=== PATIENT | female | born 1960 | race Caucasian/White ===

== ENCOUNTER 2017-08-03 15:35 | Emergency (ER) | payer OTHER ==
--- NOTE | 2017-08-03 17:39 | EDM.PDOC ---
ED HPI GENERAL MEDICAL PROBLEM - General Chief Complaint: Respiratory Problem Stated Complaint: CONJESTION Time Seen by Provider: 08/03/17 17:00 Source of Information: Reports: Patient History Limitations: Reports: No Limitations - History of Present Illness INITIAL COMMENTS - FREE TEXT/NARRATIVE: pt has arrived jhonatan she has had a marked cough for th past 1.5 weeks. Onset: Gradual, Other ( for 1.5 weeks. ) Duration: Day(s): Location: Reports: Chest Associated Symptoms: Reports: Chest Pain, Cough, Shortness of Breath, Other ( episodes of coughing until she vomits. ) - Related Data Allergies Allergy/AdvReac Type Severity Reaction Status Date / Time No Known Allergies Allergy Verified 08/03/17 15:53 Home Meds: Home Meds NK [No Known Home Meds] 08/03/17 [History] Past Medical History - Past Health History Medical/Surgical History: Denies Medical/Surgical History Cardiovascular History: Reports: High Cholesterol Musculoskeletal History: Reports: Fracture Other Musculoskeletal History: plate in right arm Oncologic (Cancer) History: Reports: Squamous Cell Carcinoma Dermatologic History: Reports: Other (See Below) - Infectious Disease History Infectious Disease History: Reports: Chicken Pox - Past Surgical History Female Surgical History: Reports: Hysterectomy Dermatological Surgical History: Reports: Skin Biopsy, Other (See Below) Social & Family History - Tobacco Use Smoking Status *Q: Never Smoker Second Hand Smoke Exposure: Yes - Caffeine Use Caffeine Use: Reports: Coffee - Recreational Drug Use Recreational Drug Use: No ED ROS GENERAL - Review of Systems Review Of Systems: See Below Constitutional: Reports: Chills, Weakness HEENT: Reports: No Symptoms Respiratory: Reports: Shortness of Breath, Cough Cardiovascular: Reports: No Symptoms Endocrine: Reports: No Symptoms GI/Abdominal: Reports: No Symptoms : Reports: No Symptoms Musculoskeletal: Reports: Hand Pain Skin: Reports: No Symptoms ED EXAM, GENERAL - Physical Exam Exam: See Below Free Text/Narrative:: pt arrived with a history of 1.5 weeks of cough and some shortness of breath. Exam Limited By: No Limitations General Appearance: Alert, Anxious, Mild Distress Ears: Normal TMs Nose: Normal Inspection Throat/Mouth: Normal Inspection Head: Atraumatic Neck: Normal Inspection Respiratory/Chest: Other (Pt did have some rales on the left side. ) Cardiovascular: Regular Rate, Rhythm GI/Abdominal: Soft, Non-Tender (Female) Exam: Deferred Rectal (Female) Exam: Deferred Back Exam: Normal Inspection Extremities: Normal Inspection Course - Vital Signs Last Recorded V/S: Last Vital Signs Temp 36.2 C 08/03/17 16:06 Pulse 65 08/03/17 16:06 Resp 14 08/03/17 16:06 BP 134/94 H 08/03/17 16:06 Pulse Ox 98 08/03/17 16:06 - Orders/Labs/Meds Orders: Active Orders 24 hr Category Date Time Status RT Aerosol Therapy [RC] ASDIRECTED Care 08/03/17 18:10 Active Chest 2V [CR] Stat Exams 08/03/17 17:36 Taken MONONUCLEOSIS SCREEN [CHEM] Stat Lab 08/03/17 18:10 Ordered Labs: Laboratory Tests 08/03/17 Range/Units 17:45 WBC 6.8 (4.5-11.0) K/uL RBC 4.51 (3.30-5.50) M/uL Hgb 13.8 (12.0-15.0) g/dL Hct 41.1 (36.0-48.0) % MCV 91 (80-98) fL MCH 31 (27-31) pg MCHC 34 (32-36) % Plt Count 288 (150-400) K/uL Neut % (Auto) 59 (36-66) % Lymph % (Auto) 30 (24-44) % Izard % (Auto) 8 H (2-6) % Eos % (Auto) 2 (2-4) % Baso % (Auto) 1 (0-1) % Meds: Medications Discontinued Medications Generic Name Dose Route Start Last Admin Trade Name David PRN Reason Stop Dose Admin Albuterol 2.5 mg 08/03/17 18:10 Proventil Neb Soln NEB 08/03/17 18:11 ONETIME ONE - Re-Assessments/Exams Free Text/Narrative Re-Assessment/Exam: 08/03/17 18:18 Pt was given a neb--albuterol. She had a chest xray which did not reveal a infiltrate. Her wbc was not elevated. She did have some atypical lymphs. Departure - Departure Time of Disposition: 18:19 Disposition: Home, Self-Care 01 Condition: Fair Clinical Impression: Bronchitis - Discharge Information Referrals: Shade Das MD [Primary Care Provider] - Forms: ED Department Discharge Care Plan Goals: Push fluids, albuterol inhaler 2 puffs tid, robitussin ac 2 tsp q6h prn for cough, zithromax - My Orders Last 24 Hours: My Active Orders 08/03/17 17:36 Chest 2V [CR] Stat 08/03/17 18:10 RT Aerosol Therapy [RC] ASDIRECTED MONONUCLEOSIS SCREEN [CHEM] Stat - Assessment/Plan Last 24 Hours: My Active Orders 08/03/17 17:36 Chest 2V [CR] Stat 08/03/17 18:10 RT Aerosol Therapy [RC] ASDIRECTED MONONUCLEOSIS SCREEN [CHEM] Stat
[2017-08-03] MEDS ORDERED: Albuterol 0.083% 2.5 MG/3 ML Neb Soln NEB ONE (18:10)
--- NOTE | 2017-08-05 09:37 | CR ---
Chest 2V HISTORY: Shortness of breath and cough COMPARISON: None FINDINGS: Cardiac size and pulmonary vessels normal. There are no infiltrates or effusions. No pneumo thorax. The osseous structures appear normal. IMPRESSION: No acute pulmonary disease.
== END 2017-08-03 18:34 | disposition home or self-care (01) ==
LOC: JP.ED 15:35
DX: J40 Bronchitis, not specified as acute or chronic (principal)
CPT/HCPCS: 36415; 71020; 71020-26; 85025; 86308; 94640; 99284-25